=== PATIENT | male | born 1960 | race Hispanic/Latino ===

== ENCOUNTER → 2018-09-22 | Outpatient (CLI) | payer OTHER ==
--- NOTE | 2018-09-22 15:59 | Diagnostic Imaging Report ---
Exam: Right shoulder 2 views History: Pain Comparison: None. Findings: No acute, displaced fracture or dislocation. Humeral head projects appropriately adjacent to the glenoid. Mild acromioclavicular joint space narrowing and undersurface osteophytosis. Glenohumeral joint is well-maintained. Soft tissues unremarkable. Nonaggressive appearing sclerotic foci in the proximal humeral head. This may represent a cluster of bone islands, an enchondroma, or less likely a bone infarct. Impression: No acute osseous abnormality. Mild acromioclavicular degenerative arthrosis. Signed by: Dr. Portillo Erazo M.D. on 09/22/2018 3:56 PM
== END ==
LOC: RAD 15:14
PROVIDERS: ATTEND Family Medicine
DX: M25.511 Pain in right shoulder (principal)